=== PATIENT | female | born 1995 | race Caucasian/White ===

== ENCOUNTER 2022-08-07 11:02 | Emergency (ER) | payer OTHER, MEDICAID ==
[~2022-08-07] VITALS: Ht 149.8 cm; Wt 54.4 kg
[2022-08-07 11:05] VITALS: BP 118/78
--- NOTE | 2022-08-07 12:02 | ED General ---
General Chief Complaint: Cough/Cold/Flu Symptoms Stated Complaint: COUGH,SORE THROAT Nursing Triage Note: Patient reports she has had a headache and sore throat since this morning. Source of Information: Patient Exam Limitations: No Limitations History of Present Illness Date Seen by Provider: Aug 07, 2022 Time Seen by Provider: 11:00 Initial Comments Patient is a 27-year-old female who presents with nasal congestion rhinorrhea, sore throat and headache starting this morning. Patient has multiple sick family was treated in the emergency department for viral syndrome. Patient denies blurred vision, neck stiffness, rash, chest pain palpitation shortness of breath, wheezing, abdominal pain nausea vomiting or other concerning symptoms. Timing/Duration: 4-6 Hours Severity: Mild Modifying Factors: improves with Other Associated Systoms: Other Allergies and Home Medications Allergies Coded Allergies: Sulfa (Sulfonamide Antibiotics) (Verified Allergy, Unknown, 08/07/22) Patient Home Medication List Home Medication List Reviewed: Yes Review of Systems Review of Systems Constitutional: see HPI EENTM: see HPI Respiratory: see HPI Cardiovascular: see HPI Gastrointestinal: see HPI Genitourinary: see HPI : No Musculoskeletal: see HPI Skin: see HPI Psychiatric/Neurological: See HPI Hematologic/Lymphatic: See HPI All Other Systems Reviewed Negative Unless Noted: No Past [id number]-[id number]-Htpexi Hx Patient Social History Tobacco Use?: No Substance use?: No Alcohol Use?: No Pt feels they are or have been: No Physical Exam Vital Signs Vital Signs - First Documented 08/07/22 11:05 Temp 36.0 Pulse 79 Resp 18 B/P (MAP) 118/78 (91) Pulse Ox 99 O2 Delivery Room Air Capillary Refill : Less Than 3 Seconds Height, Weight, BMI Height: '" Weight: lbs. oz. kg; 24.00 BMI Method: General Appearance: No Apparent Distress, WD/WN Eyes: Bilateral Eye Normal Inspection, Bilateral Eye PERRL, Bilateral Eye EOMI HEENT: PERRL/EOMI, Normal ENT Inspection, Pharynx Normal Neck: Normal Inspection, Non Tender, Supple Respiratory: Lungs Clear Cardiovascular: Regular Rate, Rhythm, No Edema, Normal Peripheral Pulses Gastrointestinal: Non Tender, Soft Back: No CVA Tenderness Neurologic/Psychiatric: Alert, Oriented x3, Normal Mood/Affect, audit tech II-XII Norm as Tested Skin: Normal Color, Warm/Dry Lymphatic: No Adenopathy Focused Exam Sepsis Stage: Ruled Out Progress/Results/Core Measures Suspected Sepsis SIRS Temperature: Pulse: 79 Respiratory Rate: 18 Blood Pressure 118 /78 Mean: 91 Results/Orders Vital Signs/I&O 08/07/22 11:05 Temp 36.0 Pulse 79 Resp 18 B/P (MAP) 118/78 (91) Pulse Ox 99 O2 Delivery Room Air Capillary Refill : Less Than 3 Seconds Blood Pressure Mean: 91 Departure Communication (Admissions) Patient with mild URI symptoms. Recommendations are supportive care, PCP follow-up and watchful waiting. Return precautions reviewed. Patient verbalizes understanding agreement discharge instructions prior to departure. Impression Primary Impression: Upper respiratory infection Disposition: HOME, SELF-CARE Condition: Stable Departure-Patient Inst. Decision time for Depature: 12:02 Patient Instructions: Viral Upper Respiratory Infection, Adult (DC) Add. Discharge Instructions: Please go home and rest, increase fluids, and take ibuprofen and Mucinex for fever, pain and cough. Follow-up with your PCP in 3 to 5 days as needed if symptoms persist. Return to the ED if new or worsening symptoms. A Courtesy work note has been provided All discharge instructions reviewed with patient and/or family. Voiced understanding. Work/School Note: Family Work Note Patient Received Medical Care In the Emergency Department On: Aug 07, 2022 Patient Will Be Able to Return to Work/School On: Aug 10, 2022 Patient Restrictions: No restriction MARTIN ACOSTA DO Aug 07, 2022 12:02
== END 2022-08-07 12:22 | disposition home or self-care (01) ==
LOC: ER FS 11:04
DX: J06.9 Acute upper respiratory infection, unspecified (principal); Z28.310 Unvaccinated for COVID-19
CPT/HCPCS: 99283